=== PATIENT | male | born 1995 | race Caucasian/White ===

== ENCOUNTER 2018-09-05 19:43 | Emergency (ER) | payer OTHER ==
[~2018-09-05] VITALS: Ht 185.4 cm; Wt 77.1 kg
[~2018-09-05 19:43] MED LIST: NEO-SYNEPHRINE15 M1 NS; NOHOMEMEDICATIONS; PERCOCET 5-3251 EACH PO
[2018-09-05 20:33] LABS: HEMATOCRIT 43.4 % (42.0-52.0); HEMOGLOBIN 15.1 gm/dL (14.0-18.0); MCH 29.9 pg (26.0-34.0); MCHC 34.9 g/dL (28.0-37.0); MCV 85.8 fL (80.0-100.0); NUCLEATED RBCS 0 /100WBC; PLATELET COUNT* 208 thou/uL (150-400); RBC 5.06 mil/uL (4.50-6.00); RDW-CV 12.5 % (10.5-14.5); WBC 10.1 thou/uL (4.0-11.0)
[2018-09-05 20:41] LABS: CALCIUM 9.3 mg/dL (8.5-10.1); POTASSIUM 3.4 mmol/L (3.5-5.1)
[2018-09-05 20:45] LABS: TOTAL BILIRUBIN 0.5 mg/dL (<0.1-1.0); TOTAL PROTEIN 8.1 g/dL (6.4-8.2)
[2018-09-05 20:58] LABS: ABSOLUTE LYMPHOCYTES 0.7 thou/uL (0.8-5.3); ABSOLUTE MONOCYTES 0.3 thou/uL (0.0-1.2); ABSOLUTE NEUTROPHILS 9.1 thou/uL (1.6-8.1); PLATELET ESTIMATE ADEQUATE
[2018-09-05 21:25] VITALS: BP 137/79
[2018-09-05 21:38] LABS: URINE BILIRUBIN NEGATIVE (Negative); URINE BLOOD NEGATIVE (Negative); URINE CLARITY CLEAR; URINE COLOR YELLOW; URINE GLUCOSE-RANDOM NEGATIVE (Negative); URINE KETONES NEGATIVE (Negative); URINE LEUKOCYTES-REFLEX NEGATIVE (Negative); URINE NITRITE-REFLEX NEGATIVE (Negative); URINE PROTEIN NEGATIVE (Negative); URINE UROBILINOGEN 0.2 E.U./dl (0.2-1.0)
[2018-09-05 21:46] LABS: AMP/METHAMP POSITIVE (Negative); BARBITURATES Negative (Negative); BENZODIAZEPINES Negative (Negative); COCAINE Negative (Negative); METHADONE Negative (Negative); OPIATES Negative (Negative); PCP Negative (Negative); THC POSITIVE (Negative)
== END 2018-09-05 21:25 | disposition home or self-care (01) ==
LOC: M.ERS 19:43
PROVIDERS: Family Medicine
DX: F19.10 Other psychoactive substance abuse, uncomplicated (principal); R55 Syncope and collapse; F17.210 Nicotine dependence, cigarettes, uncomplicated

== ENCOUNTER 2019-01-14 12:15 | Inpatient (IN) | payer OTHER ==
[~2019-01-14] VITALS: Ht 182.9 cm; Wt 83.0 kg
[2019-01-14] VITALS (8 sets, daily range): BP systolic 108–142; BP diastolic 57–91
[2019-01-14 12:43] LABS: URINE BILIRUBIN NEGATIVE (Negative); URINE BLOOD NEGATIVE (Negative); URINE CLARITY CLEAR; URINE COLOR YELLOW; URINE GLUCOSE-RANDOM NEGATIVE (Negative); URINE KETONES NEGATIVE (Negative); URINE LEUKOCYTES-REFLEX NEGATIVE (Negative); URINE NITRITE-REFLEX NEGATIVE (Negative); URINE PROTEIN NEGATIVE (Negative); URINE SPECIFIC GRAVITY <= 1.005 (1.005-1.030); URINE UROBILINOGEN 0.2 E.U./dl (0.2-1.0)
[2019-01-14 12:49] LABS: ABSOLUTE LYMPHOCYTES 1.4 thou/uL (0.8-5.3); ABSOLUTE MONOCYTES 0.6 thou/uL (0.0-1.2); ABSOLUTE NEUTROPHILS 3.7 thou/uL (1.6-8.1); BASOPHILS 0.8 %; EOSINOPHILS 0.8 %; HEMATOCRIT 44.8 % (42.0-52.0); HEMOGLOBIN 15.5 gm/dL (14.0-18.0); LYMPHOCYTES 24.2 %; MCH 29.7 pg (26.0-34.0); MCHC 34.5 g/dL (28.0-37.0); MCV 86.2 fL (80.0-100.0); MONOCYTES 10.2 %; MPV 8.8 fl. (7.2-11.1); NUCLEATED RBCS 0 /100WBC; PLATELET COUNT* 202 thou/uL (150-400); RDW-CV 12.8 % (10.5-14.5); WBC 5.7 thou/uL (4.0-11.0)
[2019-01-14 12:50] LABS: AMP/METHAMP POSITIVE (Negative); BARBITURATES Negative (Negative); BENZODIAZEPINES Negative (Negative); COCAINE Negative (Negative); METHADONE Negative (Negative); OPIATES POSITIVE (Negative); PCP Negative (Negative); THC Negative (Negative)
[2019-01-14 12:57] LABS: ALBUMIN 4.2 g/dL (3.4-5.0); POTASSIUM 3.1 mmol/L (3.5-5.1); TOTAL BILIRUBIN 0.6 mg/dL (<0.1-1.0); TOTAL PROTEIN 7.4 g/dL (6.4-8.2)
[2019-01-14 13:06] LABS: ACETAMINOPHEN 33 ug/mL (10-30); ALCOHOL 60 mg/dL (<10); SALICYLATE < 2.8 mg/dL (2.8-20.0)
[2019-01-15] VITALS (9 sets, daily range): BP systolic 115–133; BP diastolic 60–70
--- NOTE | 2019-01-15 16:34 | EKG ---
[place] [address] ELECTROCARDIOGRAM REPORT Name: COREY GATES Room: [address] ADM IN M.R.#: [id number] Admission: 01/14/19 Attend Phys: Ronak Travis MD Discharge: Date of : [birth year] Report #: [id number] THIS REPORT FOR: //name// [facility] ED Test Date: 2019-01-14 Test Time: 12:19:27 Pat Name: COREY GATES Department: Room: 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1995 Requested By: Casey Noland Order Number: [id number] MD: Andrez Petersen Measurements Intervals [place] Rate: 95 P: 73 NH: 125 QRS: 68 QRSD: 89 T: -89 QT: 324 QTc: 408 Interpretive Statements Sinus rhythm Probable left atrial enlargement Probable LVH with secondary repol abnrm No previous ECG available for comparison Electronically Signed On 01-15-2019 16:34:20 [employer] by Andrez Petersen [email or web address] <ELECTRONICALLY SIGNED> By: Andrez Petersen MD, [facility] 01/15/19 1634 18 Andrez Petersen MD, FACC /EPI
[2019-01-16] VITALS: BP 118/68
[2019-01-16 04:00] VITALS: BP 103/60
[2019-01-16 08:00] VITALS: BP 112/58
[2019-01-16 12:00] VITALS: BP 108/60
[2019-01-16 16:00] VITALS: BP 116/61
[2019-01-16 16:12] VITALS: BP 108/60
== END 2019-01-16 17:52 | DRG 918 ==
LOC: M.ERS 12:15 → M.TBA-ER 14:19 → M.2W 14:19 → M.ICU 14:19 → M.2W 01-15 18:04
PROVIDERS: Family Medicine
DX: T39.1X2A Poisoning by 4-Aminophenol derivatives, intentional self-harm, initial encounter (principal); T39.312A Poisoning by propionic acid derivatives, intentional self-harm, initial encounter; F17.210 Nicotine dependence, cigarettes, uncomplicated; F15.90 Other stimulant use, unspecified, uncomplicated; Y92.89 Other specified places as the place of occurrence of the external cause; Z23 Encounter for immunization

== ENCOUNTER 2019-02-21 18:10 | Emergency (ER) | payer OTHER ==
[~2019-02-21] VITALS: Ht 185.4 cm; Wt 82.6 kg
[2019-02-21 18:20] VITALS: BP 162/92
[2019-02-21] MEDS ORDERED: VISTARIL 25 MG25 M1 PO (18:23)
[2019-02-21] MEDS ORDERED: CELEXA20 MG PO ×2 (18:23→18:34)
[2019-02-21] MEDS ORDERED: VISTARIL50 MG PO (18:34)
== END 2019-02-21 18:41 | disposition home or self-care (01) ==
LOC: M.ERS 18:10
DX: F41.9 Anxiety disorder, unspecified (principal); Z76.0 Encounter for issue of repeat prescription; F32.9 Major depressive disorder, single episode, unspecified; F17.210 Nicotine dependence, cigarettes, uncomplicated

== ENCOUNTER 2020-09-20 16:18 | Emergency (ER) | payer OTHER ==
[~2020-09-20] VITALS: Ht 185.4 cm; Wt 83.9 kg
[~2020-09-20 16:18] MED LIST changes: +CELEXA20 MG PO; +VISTARIL 25 MG25 M1 PO; +VISTARIL50 MG PO
[2020-09-20 17:17] LABS: ABSOLUTE EOSINOPHILS 0.1 thou/uL (0.0-0.7); ABSOLUTE LYMPHOCYTES 1.4 thou/uL (0.8-5.3); ABSOLUTE MONOCYTES 0.4 thou/uL (0.0-1.2); ABSOLUTE NEUTROPHILS 3.3 thou/uL (1.6-8.1); BASOPHILS 0.7 %; EOSINOPHILS 1.8 %; LYMPHOCYTES 27.7 %; MCH 30.9 pg (26.0-34.0); MCHC 34.9 g/dL (28.0-37.0); MCV 88.6 fL (80.0-100.0); MONOCYTES 7.6 %; MPV 8.7 fl. (7.2-11.1); NUCLEATED RBCS 0 /100WBC; PLATELET COUNT* 226 thou/uL (150-400); POLYS 62.2 %; RBC 5.19 mil/uL (4.50-6.00); RDW-CV 12.5 % (10.5-14.5); WBC 5.2 thou/uL (4.0-11.0)
[2020-09-20 17:30] LABS: CALCIUM 8.9 mg/dL (8.5-10.1); POTASSIUM 3.7 mmol/L (3.5-5.1)
[2020-09-20 17:34] LABS: URINE BILIRUBIN NEGATIVE (Negative); URINE BLOOD NEGATIVE (Negative); URINE CLARITY CLEAR; URINE COLOR YELLOW; URINE GLUCOSE-RANDOM NEGATIVE (Negative); URINE KETONES NEGATIVE (Negative); URINE LEUKOCYTES-REFLEX NEGATIVE (Negative); URINE NITRITE-REFLEX NEGATIVE (Negative); URINE PROTEIN TRACE (Negative); URINE UROBILINOGEN 0.2 E.U./dl (0.2-1.0)
[2020-09-20 17:34] LABS: ALBUMIN 4.4 g/dL (3.4-5.0); TOTAL BILIRUBIN 0.6 mg/dL (<0.1-1.0); TOTAL PROTEIN 8.2 g/dL (6.4-8.2)
[2020-09-20 17:42] LABS: AMP/METHAMP Negative (Negative); BARBITURATES Negative (Negative); BENZODIAZEPINES Negative (Negative); COCAINE Negative (Negative); METHADONE Negative (Negative); OPIATES Negative (Negative); PCP Negative (Negative); THC Negative (Negative)
[2020-09-20 17:47] LABS: APTT 26.1 Seconds (25.0-31.3); PROTIME 10.3 Seconds (9.20-11.50)
[2020-09-20] MEDS ORDERED: BENTYL 20 MG TA20 M1 PO (20:02)
[2020-09-20] MEDS ORDERED: ONDANSETRON HCL4 M2 PO (20:02)
[2020-09-20] MEDS ORDERED: CARAFATE1 GM/10 ML PO (20:02)
[2020-09-20] MEDS ORDERED: PROTONIX40 M2 PO (20:02)
[2020-09-20 20:31] VITALS: BP 129/83
--- NOTE | 2020-09-21 14:59 | EKG ---
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1995 Requested By: Lea Hermosillo Order Number: [id number] MD: Andrez Petersen Measurements Intervals [place] Rate: 78 P: 61 TN: 153 QRS: 60 QRSD: 94 T: 18 QT: 342 QTc: 390 Interpretive Statements Sinus rhythm Borderline T abnormalities, anterior leads Compared to ECG 01/14/2019 12:19:27 T-wave abnormality now present Electronically Signed On 09-21-2020 14:58:56 CDT by Andrez Petersen [email or web address] <ELECTRONICALLY SIGNED> By: Andrez Petersen MD, FACC 09/21/20 1458 1657 165 Andrez Petersen MD, [facility] /EPI
== END 2020-09-20 20:31 | disposition home or self-care (01) ==
LOC: M.ERS 16:18
PROVIDERS: Nurse Practitioner Family
DX: K29.70 Gastritis, unspecified, without bleeding (principal); F10.20 Alcohol dependence, uncomplicated; K92.0 Hematemesis; F17.210 Nicotine dependence, cigarettes, uncomplicated

== ENCOUNTER 2021-08-26 12:40 | Emergency (ER) | payer OTHER ==
[~2021-08-26] VITALS: Ht 185.4 cm; Wt 90.7 kg
[~2021-08-26 12:40] MED LIST changes: +BENTYL 20 MG TA20 M1 PO; +CARAFATE1 GM/10 ML PO; +ONDANSETRON HCL4 M2 PO; +PROTONIX40 M2 PO
[2021-08-26] MEDS ORDERED: SUPRAX400 M1 PO (13:08)
[2021-08-26] MEDS ORDERED: DOXYCYCLINE 10100 MG PO (13:08)
[2021-08-26 13:29] LABS: URINE BILIRUBIN NEGATIVE (Negative); URINE BLOOD TRACE (Negative); URINE CLARITY CLEAR; URINE COLOR YELLOW; URINE GLUCOSE-RANDOM NEGATIVE (Negative); URINE KETONES NEGATIVE (Negative); URINE LEUKOCYTES-REFLEX NEGATIVE (Negative); URINE NITRITE-REFLEX NEGATIVE (Negative); URINE PROTEIN NEGATIVE (Negative); URINE SPECIFIC GRAVITY >= 1.030 (1.005-1.030); URINE UROBILINOGEN 0.2 E.U./dl (0.2-1.0)
[2021-08-26 13:39] VITALS: BP 141/72
== END 2021-08-26 13:39 | disposition home or self-care (01) ==
LOC: M.ERS 12:40
PROVIDERS: Family Medicine
DX: R36.1 Hematospermia (principal); M54.9 Dorsalgia, unspecified; F32.9 Major depressive disorder, single episode, unspecified; F41.9 Anxiety disorder, unspecified; F90.9 Attention-deficit hyperactivity disorder, unspecified type; F17.210 Nicotine dependence, cigarettes, uncomplicated